=== PATIENT | female | born 1945 | race Caucasian/White ===

== ENCOUNTER → 2016-12-11 | Outpatient (CLI) | payer OTHER | END | disposition home or self-care (01) | LOC: MAMMO 11:05 | DX: Z12.31 Encounter for screening mammogram for malignant neoplasm of breast (principal) ==

== ENCOUNTER → 2018-05-04 | Outpatient (CLI) | payer OTHER | END | disposition home or self-care (01) | LOC: RAD 03-29 13:00 → MAMMO 03-29 13:30 → RAD 04-21 13:30 | DX: Z12.31 Encounter for screening mammogram for malignant neoplasm of breast (principal); Z13.820 Encounter for screening for osteoporosis; Z78.0 Asymptomatic menopausal state; Z90.710 Acquired absence of both cervix and uterus ==

== ENCOUNTER → 2019-05-22 | Outpatient (CLI) | payer OTHER ==
[2019-05-22 12:19] LABS: CREATININE 1.31 mg/dL (0.55-1.02)
== END | disposition home or self-care (01) ==
LOC: LAB 09:44 → MAMMO 10:00
PROVIDERS: Internal Medicine
DX: J98.4 Other disorders of lung (principal); R00.2 Palpitations; N18.3 Chronic kidney disease, stage 3 (moderate)